=== PATIENT | male | born 1980 | race Caucasian/White ===

== ENCOUNTER 2024-11-14 22:11 | Emergency (ER) | payer OTHER, SELFPAY ==
[2024-11-14] VITALS (18 sets, daily range): BP systolic 124–147; BP diastolic 84–119; PULSE 71–104; RESP 18–24; TEMP 36.6; O2SAT 96–100; BMI 35.4
[2024-11-14] MEDS: ASPIRIN 81 MG TAB.CHEW 324 MG PO (22:15)
[2024-11-14] MEDS: NITROGLYCERIN/DEXTROSE 25,000 MCG/250 ML BOTTLE 3 MCG IVPB (22:20)
[2024-11-14 22:38] LABS: Troponin, Point-of-Care* 0.03 ng/ml (0.01-0.04)
[2024-11-14] MEDS: HEPARIN 5,000 UNIT/0.5 ML INJ 4000 UNIT IVP (22:40)
[2024-11-14] MEDS: MORPHINE 2 MG/ML inj IVP ×2 (22:40→23:00)
[2024-11-14 22:42] LABS: HCO3 VBG 26 mmol/L (21-28); Lactate* 2.4 mmol/L (0.5-1.9); PCO2 VBG 40 mmHG (40-50); PO2 VBG 45.9 mmHG (25-47); pH VBG 7.417 (7.32-7.43)
[2024-11-14] MEDS: HEPARIN 25,000 UNIT/500 ML BAG 20 UNIT IV (22:42)
[2024-11-14] MEDS: TICAGRELOR 90 MG TABLET 180 MG PO (22:43)
--- NOTE | 2024-11-14 22:45 | ED.CHESTPAIN ---
HPI - Chest Pain General Date Seen: 11/14/24 Chief Complaint: Chest Pain Stated Complaint: Possible heart attack Source: patient and RN notes reviewed Mode of arrival: ambulatory Limitations: no limitations History of Present Illness HPI narrative: This 44-year-old male is ambulatory into the ED concerned he may be having a heart attack. He awoke about 2 hours ago from sleep with lower substernal chest pain. He feels short of breath with it. He has not been sick with any cough or cold symptoms. A couple of weeks ago he had a significant GI illness where he was throwing up all night, slept the next day. He did not have chest symptoms like this. He has not had anything like this before. He does not have a history of prior UT but there is significant strong family history. Patient is a smoker. He is an [id number] dedicated truck driver. He is unaware of underlying lipids, does not go to the doctor for this routinely. He has not had any recent surgeries, no history GI bleeding, has not seen any dark tarry stools or blood in his stools. He has never been told that he should not take aspirin. He has had his gallbladder out before, has had a history kidney stones which did require stenting. Note, nursing staff came to get me immediately after his EKG was obtained showing an inferior STEMI. MD complaint: chest pain Related Data Allergies Allergy/AdvReac Type Severity Reaction Status Date / Time No Known Drug Allergies Allergy Verified 11/14/24 22:49 Review of Systems Status of ROS Reports: 6 or more systems reviewed and unremarkable except as noted in History and below [facility] Medical History (Updated 11/14/24 @ 23:25 by Marlyn Katz MD) Kidney stones ?N20.0 - Calculus of kidney (ICD-10) Surgical History (Updated 11/14/24 @ 22:49 by Marlyn Katz MD) Status post cholecystectomy ?Z90.49 - Acquired absence of other specified parts of digestive tract (ICD-10) Social History (Updated 11/14/24 @ 22:49 by Marlyn Katz MD) Smoking Status: Current every day smoker Second hand tobacco smoke exposure: No How often do you have a drink containing alcohol: never AUDIT-C Alcohol total score: 0 Non-prescribed substance use: denies use Exam Const Vital Signs, click to edit/add: Vital Signs - 24 hr 11/14/24 22:17 11/14/24 22:29 11/14/24 22:30 Temperature 97.9 F Pulse Rate 84 78 Pulse Rate [Pulse Oximeter] 84 Respiratory Rate 20 Blood Pressure 136/98 H Blood Pressure [Right Upper Arm] 132/117 H Pulse Oximetry 98 99 97 Oxygen Delivery Method Room Air 11/14/24 22:30 11/14/24 22:31 11/14/24 22:32 Temperature Pulse Rate 71 77 Pulse Rate [Pulse Oximeter] Respiratory Rate Blood Pressure 131/97 H 135/91 H Blood Pressure [Right Upper Arm] Pulse Oximetry 98 99 98 Oxygen Delivery Method Room Air 11/14/24 22:33 11/14/24 22:37 11/14/24 22:42 Temperature Pulse Rate 77 91 Pulse Rate [Pulse Oximeter] Respiratory Rate 24 Blood Pressure 145/105 H 142/98 H Blood Pressure [Right Upper Arm] Pulse Oximetry 98 97 98 Oxygen Delivery Method 11/14/24 22:43 11/14/24 22:45 11/14/24 22:47 Temperature Pulse Rate 73 103 H 89 Pulse Rate [Pulse Oximeter] Respiratory Rate Blood Pressure 147/119 H Blood Pressure [Right Upper Arm] Pulse Oximetry 96 99 98 Oxygen Delivery Method 11/14/24 22:50 11/14/24 22:52 11/14/24 22:57 Temperature Pulse Rate 104 H 76 82 Pulse Rate [Pulse Oximeter] Respiratory Rate Blood Pressure 135/84 125/89 124/95 H Blood Pressure [Right Upper Arm] Pulse Oximetry 96 98 98 Oxygen Delivery Method 11/14/24 23:00 11/14/24 23:02 11/14/24 23:07 Temperature Pulse Rate 74 73 84 Pulse Rate [Pulse Oximeter] Respiratory Rate 20 18 Blood Pressure 135/93 H 139/86 Blood Pressure [Right Upper Arm] Pulse Oximetry 99 100 98 Oxygen Delivery Method 11/14/24 23:15 Temperature 97.9 F Pulse Rate Pulse Rate [Pulse Oximeter] 84 Respiratory Rate 18 Blood Pressure Blood Pressure [Right Upper Arm] 128/89 Pulse Oximetry 98 Oxygen Delivery Method Room Air Patient is groaning but alert, interactive, can converse. Seems uncomfortable. Skin is warm and dry but he looks pale. Sclera clear, conjugate gaze. Neck is thick, lungs are clear, breathing rapidly but no wheezing or crackles. CV regular rate and rhythm, no murmur. No reproducible chest wall tenderness. Abdomen is soft, nontender, nondistended, no organomegaly, rebound or guarding. He has no lower extremity edema. Documenting provider has reviewed patient's vital signs: yes Course Course ED Course: Patient was getting [address], appropriate cardiac monitoring pulse oximetry. Did eventually have him get 1 L of nasal cannula oxygen to help with his discomfort. He does have an inferior UT but he is significantly uncomfortable, his blood pressure looks like we have some room for some nitroglycerin, will start a nitroglycerin drip. He received 324 mg chewable aspirin on arrival. Did page [facility] [place], spoke with Dr. Mendoza at 10:29 p.m.. We will proceed with the ticagrelor 180mg, heparin bolus and drip started. Reevaluation(s) Time of Reevaluation #1: 22:52 Reevaluation #1: Patient has had his nitroglycerin titrated up to 10 mcg per kilo and given 2 mg IV morphine due to ongoing pain. Blood pressure maintaining. I unfortunately cannot see is portable chest x-ray for some reason but have read the radiology read. Point of care troponin right now is still within normal, awaiting other labs. Vital Signs Vital signs: Initial Vital Signs Temperature 97.9 F 11/14/24 22:17 Temperature Source Temporal Artery Scan 11/14/24 22:17 Pulse Rate 84 11/14/24 22:17 Respiratory Rate 20 11/14/24 22:17 Respiratory Effort Normal, Spontaneous, Non-Labored 11/14/24 22:17 Respiratory Depth Normal 11/14/24 22:17 Respiratory Pattern Normal 11/14/24 22:17 Blood Pressure 132/117 H 11/14/24 22:17 Blood Pressure Mean 122 H 11/14/24 22:17 Pulse Oximetry 98 11/14/24 22:17 Oxygen Delivery Method Room Air 11/14/24 22:17 Vital Signs Temperature 97.9 F 11/14/24 22:17 Pulse Rate 84 11/14/24 22:17 Respiratory Rate 20 11/14/24 22:17 Blood Pressure 132/117 H 11/14/24 22:17 Pulse Oximetry 98 11/14/24 22:17 Oxygen Delivery Method Room Air 11/14/24 22:17 Temperature 97.9 F 11/14/24 23:15 Pulse Rate 84 11/14/24 23:15 Respiratory Rate 18 11/14/24 23:15 Blood Pressure 128/89 11/14/24 23:15 Pulse Oximetry 98 11/14/24 23:15 Oxygen Delivery Method Room Air 11/14/24 23:15 Medications Administered Medications: Discontinued Medications Generic Name Dose Route Start Last Admin Trade Name Freq PRN Reason Stop Dose Admin Aspirin 324 mg 11/14/24 22:47 11/14/24 22:15 Aspirin 81 Mg Tab.Chew PO 11/14/24 22:48 324 mg ONCE ONE Administration Heparin Sodium (Porcine) 4,000 unit 11/14/24 22:32 11/14/24 22:40 Heparin 5,000 Unit/0.5 Ml Inj IVP 11/14/24 22:33 4,000 unit ONCE ONE Administration Nitroglycerin/Dextrose 25,000 mcg in 250 mls @ 3 mls/hr 11/14/24 22:33 11/14/24 22:40 Nitroglycerin/Dextrose IVPB 10 mcg/min .TITRATE PRN 6 mls/hr Titration Protocol 5 MCG/MIN Heparin Sodium/Dextrose 25,000 unit in 500 mls @ 0 mls/hr 11/14/24 22:45 11/14/24 22:42 Heparin IV 1,000 unit/hr .Q0M FLORA 20 mls/hr Administration Protocol Per Protocol Morphine Sulfate 2 mg 11/14/24 22:47 11/14/24 22:40 Morphine 2 Mg/Ml Inj IVP 11/14/24 22:48 2 mg ONCE ONE Administration Morphine Sulfate 2 mg 11/14/24 23:00 11/14/24 23:00 Morphine 2 Mg/Ml Inj IVP 11/14/24 23:01 2 mg ONCE ONE Administration Ondansetron HCl 4 mg 11/14/24 22:47 11/14/24 22:53 Ondansetron 2 Mg/Ml Inj IVP 11/14/24 22:48 4 mg ONCE ONE Administration Ticagrelor 180 mg 11/14/24 22:32 11/14/24 22:43 Ticagrelor 90 Mg Tablet PO 11/14/24 22:33 180 mg ONCE ONE Administration MDM - Chest Pain Lab Data Attestation: I reviewed the patient's lab results. Labs: Lab Results 11/14/24 11/14/24 Range/Units 22:15 22:22 WBC 13.51 H (4.50-11.00) K/uL RBC 5.59 (4.30-5.90) m/uL Hgb 16.2 (13.5-17.5) gm/dL Hct 47.9 (37.0-53.0) % MCV 86 (80-100) fL MCH 29 (26-34) pg MCHC 34 (32-36) gm/dL RDW Coeff of [place] 13.0 (11.5-15.5) % Plt Count 366 (140-440) K/uL Neut % (Auto) 54.4 (42.0-72.0) % Lymph % (Auto) 33.2 (20-44) % [place] % (Auto) 7.5 (0.0-11.0) % Eos % (Auto) 3.6 (0.0-7.0) % Baso % (Auto) 0.3 (0.0-3.0) % Neut # (Auto) 7.30 H (1.7-7.0) K/uL Lymph # (Auto) 4.50 H (0.90-2.90) K/uL [place] # (Auto) 1.00 H (0.00-0.90) K/UL Eos # (Auto) 0.50 (0.00-0.50) K/uL Baso # (Auto) 0.00 (0.00-0.30) K/uL Abs Immat Gran (auto) 0.10 (0.00-0.30) K/uL Imm/Tot Granulo (auto) 1.0 % INR 0.90 L (0.91-1.10) APTT 25 (23-33) Seconds VBG pH 7.417 (7.32-7.43) VBG pCO2 40 (40-50) mmHG VBG pO2 45.9 (25-47) mmHG VBG HCO3 26 (21-28) mmol/L Sodium 138 (135-149) mmol/L Potassium 3.4 L (3.6-5.1) mmol/L Chloride 104 (96-114) mmol/L Carbon Dioxide 23 (20-32) mmol/L Anion Gap 11 (7-15) mEq/L BUN 11 (5-24) mg/dL Creatinine 1.2 (0.5-1.5) mg/dL Estimated Creat Clear 80.19 Estimated GFR 77 ml/min Glucose 139 H (60-115) mg/dL Lactate 2.4 H (0.5-1.9) mmol/L Calcium 8.9 (8.4-10.6) mg/dL Magnesium 2.0 (1.5-2.6) mg/dL Total Bilirubin 0.7 (0.1-1.5) mg/dL AST 27 (12-35) U/L ALT 28 (4-50) U/L Alkaline Phosphatase 123 (40-150) U/L Troponin I 0.04 (0.01-0.04) ng/mL NT-Pro-B Natriuret Pep 183 pg/mL Total Protein 7.6 (6.0-8.3) g/dL Albumin 4.2 (3.3-5.0) g/dL POC Troponin I 0.03 (0.01-0.04) ng/ml Imaging Data Chest x-ray: Attestation: I have reviewed the pertinent imaging results. Radiologist's impression: Patient: ТАТЬЯНА RAMIREZ Facility:?[facility] Patient ID:?[id number] Site Patient ID:?[id number]. Site :?[id number] Study:?XRay-Chest Portable-11/14/2024 10:35:05 PM Ordering Physician:?Gianna Cline Final Report: INDICATION: Chest pain TECHNIQUE: Chest radiograph 1 view COMPARISON: None FINDINGS: The sensitivity and specificity of the exam are moderately limited by the patient`s body habitus. Mediastinum: The mediastinum is normal in appearance. The cardiac silhouette is moderately enlarged but may be accentuated by the portable technique. Lung: Small lung volumes with perihilar ground-glass opacities noted bilaterally which may be due to atelectasis or mild edema. No sign of pleural effusion seen. No pneumothorax is identified. Bone and Soft tissue: Unremarkable for age. IMPRESSIONS: 1. Small lung volumes with perihilar ground-glass opacities noted bilaterally which may be due to atelectasis or mild edema. 2. The cardiac silhouette is moderately enlarged but may be accentuated by the portable technique. Dictated by Wayne Mathur MD @ 11/14/2024 10:36:34 PM Dictated by: Wayne Mathur MD @ 11/14/2024 22:36:38 (Electronic Signature) ECG Data Attestation: I personally reviewed and interpreted this ECG as follows: (Sinus rhythm with sinus arrhythmia, [address] segment elevation in the inferior leads with reciprocal changes in 1 and aVL. STEMI) ECG interpretation date: 11/14/24 Prior ECG tracings: not available for review Critical Care Time Critical Care Time Critical Care Time: Yes Attestation: The patient required my highest level preparedness to intervene emergently and I personally spent this critical care time directly and personally managing the patient. This critical care time included: Obtaining a history; Examining the patient; Pulse oximetry; Ordering and reviewing of studies; Arranging urgent treatment with development of a management plan; Evaluation of patients response to treatment; Frequent reassessment discussions with other providers. This critical care time was performed to assess and manage the high probability of imminent life-threatening deterioration that could result in multiorgan failure. It was exclusive of separate billable procedures and treating other patients and teaching time. Total Critical Care Time in Minutes: 60 Discharge Plan Discharge Clinical Impression: ST elevation (STEMI) myocardial infarction Qualifiers: Involved coronary artery: unspecified coronary artery Qualified Code(s): I21.3 - ST elevation (STEMI) myocardial infarction of unspecified site Patient Disposition: Xfer [facility] Discharge Location: [facility]
[2024-11-14 22:53] LABS: Basophils Percent Auto 0.3 % (0.0-3.0); Eosinophils Percent Auto 3.6 % (0.0-7.0); Hematocrit 47.9 % (37.0-53.0); Hemoglobin* 16.2 gm/dL (13.5-17.5); Lymphocytes Percent Auto 33.2 % (20-44); Mean Corpuscular HGB Conc 34 gm/dL (32-36); Mean Corpuscular Hemoglobin 29 pg (26-34); Mean Corpuscular Volume 86 fL (80-100); Monocytes Percent Auto 7.5 % (0.0-11.0); Neutrophils Percent Auto 54.4 % (42.0-72.0); Platelet Count* 366 K/uL (140-440); Red Blood Count 5.59 m/uL (4.30-5.90); White Blood Count* 13.51 K/uL (4.50-11.00)
[2024-11-14] MEDS: ONDANSETRON 2 MG/ML inj 4 MG IVP (22:53)
[2024-11-14 23:01] LABS: Slide Review Reflex No
[2024-11-14 23:03] LABS: Albumin* 4.2 g/dL (3.3-5.0); Chloride* 104 mmol/L (96-114); Potassium* 3.4 mmol/L (3.6-5.1); Sodium* 138 mmol/L (135-149)
[2024-11-14 23:05] LABS: Anion Gap 11 mEq/L (7-15); Bilirubin Total* 0.7 mg/dL (0.1-1.5); Carbon Dioxide* 23 mmol/L (20-32); Creatinine* 1.2 mg/dL (0.5-1.5); Est. Creatinine Clearance* 80.19; Estimated Glomerular Filt Rate 77 ml/min
[2024-11-14 23:06] LABS: Alanine Aminotransferase* 28 U/L (4-50); Alkaline Phosphatase* 123 U/L (40-150); Aspartate Amino Transferase* 27 U/L (12-35); Blood Urea Nitrogen* 11 mg/dL (5-24); Calcium* 8.9 mg/dL (8.4-10.6); Glucose* 139 mg/dL (60-115); Total Protein* 7.6 g/dL (6.0-8.3)
[2024-11-14 23:07] LABS: Prothrombin Time 12.7 Seconds
[2024-11-14 23:08] LABS: Partial Thromboplastin Time* 25 Seconds (23-33)
[2024-11-14 23:18] LABS: Troponin I* 0.04 ng/mL (0.01-0.04)
[2024-11-14 23:19] LABS: NT Pro B Type NatriureticPept* 183 pg/mL
== END 2024-11-14 23:23 | disposition short-term general hospital (02) ==
PROVIDERS: Emergency Provider Family Medicine
DX: I21.3 ST elevation (STEMI) myocardial infarction of unspecified site (principal)
CPT/HCPCS: 36415; 71045; 80053; 82803; 83605; 83735; 83880; 84484; 85025; 85610; 85730; 93005; 94761; 96365; 96375; 99285; 99291; A9270; J1644; J2270; J2405